=== PATIENT | female | born 1945 | race Caucasian/White ===

== ENCOUNTER 2017-09-13 05:21 | Inpatient (IN) | payer MEDICARE, OTHER ==
[~2017-09-13] VITALS: Ht 160 cm; Wt 57.0 kg
[2017-09-13] MEDS ORDERED: POVIDONE IODINE 5% (ANTISEPSIS KIT) 4 APPLICATIONS EACH NARE PRN (06:15)
[2017-09-13] MEDS ORDERED: CHLORHEXIDINE GLUCONATE 2 % 1 PACK (2 CLOTHS) TOPICAL PRN (06:15)
[2017-09-13] MEDS ORDERED: SODIUM CHLORID 0.9% 500 ML IV PRN (06:15)
[2017-09-13] MEDS ORDERED: LACTATED RINGER'S 1000 ML IV PRN (06:15)
[2017-09-13] MEDS ORDERED: METOPROLOL TARTRATE 25 MG TAB PO PRN (06:15)
[2017-09-13] MEDS ORDERED: ceFAZolin 2 GM PREMIX 50 ML IV SCH (06:15)
[2017-09-13 06:51] LABS: INTERNATIONAL NORMALIZED RATIO 1.1 RATIO; PROTHROMBIN TIME - PATIENT 10.7 SEC (9.8-11.6)
[2017-09-13] MEDS ORDERED: fentaNYL CITRATE 250 MCG/5 ML AMP ONE (07:07)
[2017-09-13] MEDS ORDERED: ceFAZolin INJ 1,000 MG VIAL ONE (07:41)
--- NOTE | 2017-09-13 10:59 | HHI.PR ---
Immediate Post Op Note Procedure Date: Sep 13, 2017 Pre Op Diagnosis: Right UPJ Obstruction Post Op Diagnosis: same Surgeon: Johnathan Son Special Education Educational Assistant(s): n/a Procedure: Right robotic dismembered pyeloplasty Complications: none Estimated blood loss: 30 ml. Anesthesia: General Drains: GREGORIA Fluids: 1600 ml IVF Patient to: PACU Patient Condition: Good Johnathan Son MD Sep 13, 2017 10:59
[2017-09-13] MEDS: SODIUM CHLOR 0.9% 1000 ML INJ 1,000 ML IV SCH ×2 (11:00→21:38)
[2017-09-13] MEDS ORDERED: DO NOT ADM ANY ANTICOAGULANT DRUGS PRN (11:22)
--- NOTE | 2017-09-13 11:39 | MP ---
cc: MANAS GARCIA M.D.,KAREN Licona MD DATE OF SURGERY 09/13/2017 PREOPERATIVE DIAGNOSIS Right congenital UPJ obstruction. POSTOPERATIVE DIAGNOSIS Right congenital UPJ obstruction. PROCEDURE PERFORMED 1. Cystourethroscopy 2. Right retrograde pyelogram 3. Insertion of right ureteral stent 4. Robotic-assisted laparoscopic right dismembered pyeloplasty. SURGEON Karen Son MD ANESTHESIA General COMPLICATIONS None PREOPERATIVE ANTIBIOTICS Ancef 1 gram IV DRAINS 1. A 6 x 24 double-J right ureteral stent 2. A 10-[place] Ryland drain 3. 16-[place] Nichols BLOOD LOSS 30 mL FLUIDS 1600 mL of crystalloid COMPLICATIONS None DISPOSITION Stable to recovery INDICATIONS The patient is a 71-year-old female who was found to have right-sided hydronephrosis initially thought related to a kidney stone. However, the patient on further workup was found to have a congenital right UPJ obstruction caused possibly by a high insertion of the ureter or appeared to be maybe a crossing vessel. The patient would have intermittent pain on the right side, but her renal function was normal. Treatment options were discussed and she elected to proceed with definitive therapy in the form of a dismembered pyeloplasty. Due to the presence of a possible crossing vessel, it was decided that endopyelotomy would not be the best course of action. After the risks, benefits and alternatives were explained to the patient including the risk of loss of the kidney, urine leak, recurrence of stricture among others, she elected to procedure and informed consent was obtained. DETAILS OF THE PROCEDURE The patient was properly identified, brought back to the operating room, and laid supine on the operating room table. A proper time-out was performed under the direction of anesthesiology. The patient and induced under general aesthetic. Preoperative antibiotics in form of Ancef one gram IV was given within a one hour start of the procedure. The patient was initially placed in the dorsolithotomy position and prepped and draped in the normal sterile surgical fashion. A rigid cystoscope was carefully passed to her bladder per urethra without any difficulty. Her bladder was carefully inspected and there was no evidence of any bladder tumor, stones, diverticula or trabeculations. Both ureteral orifices appeared to be in normal anatomic location. There was only one ureteral orifice on each side. At this time, I then passed a 5-[place]atorial [place] open-ended ureteral catheter just inside the right ureteral orifice. A right retrograde pyelogram was performed which showed a non-tortuous, nondilated ureter, however, there was significant hydronephrosis and what appeared to be a high insertion of the ureter at approximately the 2-3 o'clock position, but it was slightly difficult due to the large renal pelvis. I then passed a wire under fluoroscopy up into the right kidney through the indwelling ureteral catheter. The ureteral catheter was then removed and I back loaded a 6 x 24 double-J stent over the wire up into the right kidney. The wire was removed and the stent appeared to be in good position. A 20-[place] three-way Nichols catheter was then placed and clamped off. This concluded the first portion of the procedure. The patient was then repositioned into the left lateral decubitus position with right side up. All pressure points were padded. She was then prepped and draped in a normal sterile surgical fashion. A stab incision was made just superior and lateral to the umbilicus triangulated between the xiphoid process and the twelfth rib. The Veress needle was then used to gain access to the abdominal cavity. Pneumoperitoneum was then achieved. I then placed a 12-mm camera port under direct visualization. The intra-abdominal cavity was inspected. She had very minimal abdominal fat. A small part of the colon was adhesed to the anterior abdominal wall. Her liver itself did appear discolored and almost fatty in appearance. At this time, three other ports were then inserted, this included two 8 mm robotic ports triangulated off of the camera port one two fingerbreadths below the subcostal margin, the other one a handbreadth medial to the ASIS. A 12-mm school health assistant port was then triangulated between the camera port and the right lower quadrant port which ended up being in the midline inferior to the umbilicus. Again all ports were placed under direct visualization. The robot was then brought into position. I began by taking down the adhesions from the anterior abdominal wall to release the colon. I then reflected the colon medially by taking down the white line of Toldt. This easily exposed the dilated ureter due to the stent placement. I then follow the ureter all the up to its insertion at the UPJ. There was a large lower pole vessel that appeared to be a large vein likely was the cause of her UPJ as it did not really have a high insertion of her ureter. Therefore I then divided the ureter from the UPJ and brought the renal pelvis and ureter anterior to the vessel. A watertight anastomosis was performed with running 3-0 Vicryl sutures over the stent. There was no evidence of any urine leak at the end of the case. One gram of Sridhar was used for hemostatic purposes. At this time, the abdominal insufflation was brought down to 7 mmHg. Everything appeared to be dry and hemostatic. No evidence of bleeding. A 10-[place]atorial [place] GREGORIA drain was then placed in the right lower quadrant through the second robotic port. It was secured with a 3-0 nylon to the skin. All ports removed under direct visualization. The sponge, needle count was correct at the end of the case. This concluded procedure. The patient was extubated and sent to recovery in stable condition to be transferred to the floor for routine postoperative care. MD BRO Jamil/KAREL /11:05 AM /11:20 AM
--- NOTE | 2017-09-13 11:58 | EKG ---
Date Performed: 09/13/2017 Time Performed: 06:24:41 PTAGE: 71 years EKG: Sinus rhythm NORMAL ECG NO PREVIOUS TRACING DOCTOR: Crystal Summers Interpretating Date/Time 09/13/2017 11:57:57
[2017-09-13] MEDS ORDERED: ROCURONIUM INJ 50 MG/5 ML SYRINGE IV PUSH ONE (12:00)
[2017-09-13] MEDS ORDERED: GLYCOPYRROLATE 1 MG/5 ML SYRINGE IV PUSH ONE (12:00)
[2017-09-13] MEDS: ACETAMINOPHEN 1000 MG/100 ML 100 ML IV SCH ×3 (12:00→21:46)
[2017-09-13] MEDS ORDERED: PROPOFOL 200 MG/20 ML AMP IV ONE (12:00)
[2017-09-13] MEDS ORDERED: ONDANSETRON HCL 4 MG/2 ML VIAL IV ONE (12:00)
[2017-09-13] MEDS ORDERED: NEOSTIGMINE 5 MG/5 ML SYRINGE IV PUSH ONE (12:00)
[2017-09-13] MEDS ORDERED: MORPHINE SULFATE 4 MG/ML INJ IV PUSH PRN (12:00)
[2017-09-13] MEDS ORDERED: ePHEDrine/NS 25 MG/5 ML SYRINGE IV ONE (12:00)
[2017-09-13] MEDS ORDERED: LIDOCAINE HCL 1% PF 5 ML SYRINGE OTHER ONE (12:00)
[2017-09-13] MEDS ORDERED: DEXAMETHASONE SOD PHOS 4 MG/ML VIAL IV ONE (12:00)
[2017-09-13] MEDS ORDERED: PHENYLEPH/NS 1000 MCG/10 ML SYR IV ONE (12:00)
[2017-09-13] MEDS ORDERED: *morphine SULFATE 4 MG/ML PERIprocedure ONLY ONE (12:36)
[2017-09-13] MEDS: PANTOPRAZOLE SODIUM 40 MG VIAL IV PUSH SCH (13:00)
[2017-09-13] MEDS: CLINDAMYCIN 600 MG/NS PREMIX 50 ML IV SCH ×2 (13:00→21:35)
--- NOTE | 2017-09-13 13:14 | RADRPT ---
EXAM DATE/TIME: 09/13/2017 08:08 [facility] COMPARISON: No previous studies available for comparison. INDICATIONS : Right kidney retrograde pyleogram. .30 minutes 2 CONTRAST: Instilled by Ordering Physician MEDICAL HISTORY : None. SURGICAL HISTORY : None. ENCOUNTER: Initial ACUITY: 1 day PAIN SCORE: Non-responsive. LOCATION: Right kidney FINDINGS: Retrograde pyelogram demonstrates contrast within a dilated renal pelvis. Stent has been placed. CONCLUSION: Dilated right renal pelvis. Travon Dinh MD on September 13, 2017 at 13:11 Board Certified Radiologist. This report was verified electronically.
[2017-09-13] MEDS: ONDANSETRON HCL 4 MG/2 ML VIAL IV PUSH PRN ×2 (13:46→17:43)
[2017-09-13 14:55] LABS: AUTOMATED NEUTROPHIL # 8.9 TH/MM3 (1.8-7.7); BASOPHIL % 0.1 % (0.0-2.0); HEMOGLOBIN 12.3 GM/DL (11.6-15.3); LYMPH % 5.1 % (9.0-44.0); LYMPHOCYTE # 0.5 TH/MM3 (1.0-4.8); MEAN CELL VOLUME 92.2 FL (80.0-100.0); MEAN CORPUSCULAR HEMOGLOBIN 31.5 PG (27.0-34.0); MEAN CORPUSCULAR HGB CONC 34.2 % (32.0-36.0); MEAN PLATELET VOLUME 7.3 FL (7.0-11.0); MONO % 2.1 % (0.0-8.0); MONOCYTE # 0.2 TH/MM3 (0-0.9); NEUT % 92.7 % (16.0-70.0); PLATELET COUNT 152 TH/MM3 (150-450); RED BLOOD COUNT 3.91 MIL/MM3 (4.00-5.30); WHITE BLOOD COUNT 9.7 TH/MM3 (4.0-11.0)
[2017-09-13 15:59] LABS: CALCIUM 7.3 MG/DL (8.5-10.1); CREATININE 0.42 MG/DL (0.50-1.00)
[2017-09-13 16:00] VITALS: BP 98/55; PULSE 80; RESP 16; TEMP 95.8; O2SAT 100
[2017-09-13 16:24] LABS: CALCIUM-PROTEIN CORRECTED 8.5 MG/DL (8.5-10.1); TOTAL PROTEIN 4.9 GM/DL (6.4-8.2)
[2017-09-13] MEDS ORDERED: METOCLOPRAMIDE HCL 10 MG/2 ML VIAL IV STA (17:57)
[2017-09-13] MEDS ORDERED: METOCLOPRAMIDE HCL 10 MG/2 ML VIAL IV PRN (18:30)
[2017-09-13 20:00] VITALS: BP 93/50; PULSE 81; RESP 18; TEMP 96.2; O2SAT 97
[2017-09-13] MEDS: DOCUSATE SODIUM 100 MG CAP PO SCH (21:00)
[2017-09-14] VITALS: BP 93/52; PULSE 88; RESP 18; TEMP 97.2; O2SAT 95
[2017-09-14 04:00] VITALS: BP 89/53; PULSE 76; RESP 18; TEMP 98.1; O2SAT 94
[2017-09-14] MEDS: CLINDAMYCIN 600 MG/NS PREMIX 50 ML IV SCH (04:03)
[2017-09-14] MEDS: SODIUM CHLOR 0.9% 1000 ML INJ 1,000 ML IV SCH (04:03)
[2017-09-14] MEDS: ACETAMINOPHEN 1000 MG/100 ML 100 ML IV SCH ×3 (06:30→17:20)
[2017-09-14 07:25] LABS: HEMATOCRIT 34.9 % (35.0-46.0); MEAN CELL VOLUME 92.6 FL (80.0-100.0); MEAN CORPUSCULAR HEMOGLOBIN 31.9 PG (27.0-34.0); MEAN CORPUSCULAR HGB CONC 34.5 % (32.0-36.0); MEAN PLATELET VOLUME 8.2 FL (7.0-11.0); PLATELET COUNT 170 TH/MM3 (150-450); RED BLOOD COUNT 3.76 MIL/MM3 (4.00-5.30); RED CELL DISTRIBUTION WIDTH 12.3 % (11.6-17.2); WHITE BLOOD COUNT 8.2 TH/MM3 (4.0-11.0)
[2017-09-14 07:47] LABS: BICARBONATE 23.7 MEQ/L (21.0-32.0); CALCIUM 7.9 MG/DL (8.5-10.1); CREATININE 0.49 MG/DL (0.50-1.00)
[2017-09-14 08:00] VITALS: BP 98/51; PULSE 70; RESP 17; TEMP 97.6; O2SAT 97
[2017-09-14] MEDS: DOCUSATE SODIUM 100 MG CAP PO SCH ×2 (08:27→20:32)
[2017-09-14 12:00] VITALS: BP 98/53; PULSE 82; RESP 18; TEMP 98.3; O2SAT 95
[2017-09-14] MEDS: PANTOPRAZOLE SODIUM 40 MG VIAL IV PUSH SCH (12:25)
[2017-09-14] MEDS ORDERED: KETOROLAC TROMETHAMINE 30 MG/ML (IVP) VIAL IV PUSH PRN (13:30)
[2017-09-14] MEDS ORDERED: traMADol HCL 50 MG TAB PO PRN ×2 (13:30)
--- NOTE | 2017-09-14 13:35 | HHI.PR ---
Subjective Patient symptoms today had significant nausea yesterday but much improved after adding Reglan. Voiding on own. Holding liquids down. Has been OOB. Denies fevers, chills, CP, SOB. Has not passed flatus. Objective Vital Signs Vital Signs Date Time Temp Pulse Resp B/P (MAP) Pulse Ox O2 Delivery O2 Flow Rate FiO2 09/14/17 12:00 98.3 82 18 98/53 (68) 95 09/14/17 08:00 97.6 70 17 98/51 (67) 97 09/14/17 04:00 98.1 76 18 89/53 (65) 94 09/14/17 00:00 97.2 88 18 93/52 (66) 95 09/13/17 20:00 96.2 81 18 93/50 (64) 97 09/13/17 16:00 95.8 80 16 98/55 (69) 100 09/13/17 14:45 97.4 71 14 94/55 (68) 100 Nasal Cannula 2 09/13/17 14:30 77 14 95/55 (68) 100 Nasal Cannula 2 09/13/17 14:15 76 14 92/53 (66) 100 Nasal Cannula 2 09/13/17 14:00 74 14 90/50 (63) 100 Nasal Cannula 2 09/13/17 13:45 97.4 79 14 88/53 (65) 100 Nasal Cannula 2 Intake & Output 09/14/17 09/14/17 07:00 19:00 Intake Total 1769 ml Output Total 1405 ml Balance 364 ml Intake Oral 600 ml IV Total 1169 ml Output Urine Total 1350 ml Drainage Total 55 ml # Bowel Movements 0 Result Diagram: 09/14/17 0553 09/14/17 0553 Objective Remarks NAD. A/O x 3 non labored respirations RRR abd soft, minimal tenderness, ND. inc c/d/i. GREGORIA drain with serous fluid. Ext NT. no edema. Medications and IVs Current Medications Medications (Trade) Dose Ordered Sig/[place]ha Route Start Time Stop Time Status Last Admin Cefazolin Sodium/ Dextrose 50 ml @ 150 mls/hr CUT OUT PRESS OPERATOR IV 09/13/17 06:15 09/16/17 06:14 Lactated Ringer's 1,000 ml @ 30 mls/hr Q24H PRN IV 09/13/17 06:15 09/16/17 06:14 09/13/17 06:00 Sodium Chloride 500 ml @ 30 mls/hr [id number] PRN IV 09/13/17 06:15 09/16/17 06:14 (Lopressor) 25 mg CUT OUT PRESS OPERATOR PRN PO 09/13/17 06:15 09/16/17 06:14 (Betadine 5% Antisepsis Kit) 1 applic CUT OUT PRESS OPERATOR PRN EACH NARE 09/13/17 06:15 09/16/17 06:14 09/13/17 06:30 (Chlorhexidine 2% Cloth) 3 pack CUT OUT PRESS OPERATOR PRN TOPICAL 09/13/17 06:15 09/16/17 06:14 09/13/17 05:45 (Colace) 100 mg BID PO 09/13/17 21:00 Acetaminophen 100 ml @ 400 mls/hr Q6H IV 09/13/17 12:00 09/14/17 12:25 (Protonix Inj) 40 mg Q24H IV PUSH 09/13/17 13:00 09/14/17 12:25 (Zofran Inj) 4 mg Q6HR PRN IV PUSH 09/13/17 13:00 09/13/17 17:43 (Ultram) 50 mg Q4H PRN PO 09/14/17 13:30 UNV (Ultram) 100 mg Q4H PRN PO 09/14/17 13:30 UNV (Toradol Inj) 15 mg Q6H PRN IV PUSH 09/14/17 13:30 UNV Assessment and Plan Assessment and Plan s/p Right Robotic Pyeloplasty, POD #1 -Hep lock -Hgb stable -Initial GREGORIA Cr was serum. D/C nguyen. Repeat GREGORIA Cr. -Adjust pain meds -ambulate, IS. -possible d/c home tomorrow. Johnathan Son MD Sep 14, 2017 13:35
[2017-09-14 16:00] VITALS: BP 98/52; PULSE 77; RESP 17; TEMP 97.6; O2SAT 97
[2017-09-14] MEDS: ONDANSETRON HCL 4 MG/2 ML VIAL IV PUSH PRN ×2 (19:26→19:29)
[2017-09-14 20:00] VITALS: BP 110/57; PULSE 70; RESP 20; TEMP 97.3; O2SAT 95
[2017-09-15] VITALS: BP 112/59; PULSE 75; RESP 20; TEMP 98.2; O2SAT 95
[2017-09-15] MEDS: ACETAMINOPHEN 1000 MG/100 ML 100 ML IV SCH ×3 (01:22→11:32)
[2017-09-15] MEDS: DOCUSATE SODIUM 100 MG CAP PO SCH (07:56)
[2017-09-15 08:00] VITALS: BP 114/68; PULSE 73; RESP 16; TEMP 97.9; O2SAT 95
[2017-09-15] MEDS: PANTOPRAZOLE SODIUM 40 MG VIAL IV PUSH SCH (11:32)
[2017-09-15 12:00] VITALS: BP 119/63; PULSE 75; RESP 17; TEMP 98.2; O2SAT 97
[2017-09-15] MEDS ORDERED: TRAM50 PO (13:01)
[2017-09-15] MEDS ORDERED: DOCU1CAP39 PO (13:01)
[2017-09-15] MEDS ORDERED: PANT40TA3 PO (13:01)
== END 2017-09-15 14:51 | disposition home or self-care (01) | DRG 661 ==
LOC: HSDI 05:21 → N07A 14:58
PROVIDERS: ADMIT Urology; ATTEND Urology
PROC: BT1D1ZZ Fluoroscopy of Right Kidney, Ureter and Bladder using Low Osmolar Contrast (ICD-10-PCS; 2017-09-13)
PROC: 8E0W4CZ Robotic Assisted Procedure of Trunk Region, Percutaneous Endoscopic Approach (ICD-10-PCS; 2017-09-13)
PROC: 0TS64ZZ Reposition Right Ureter, Percutaneous Endoscopic Approach (ICD-10-PCS; principal; 2017-09-13 07:25)
PROC: 0T768DZ Dilation of Right Ureter with Intraluminal Device, Via Natural or Artificial Opening Endoscopic (ICD-10-PCS; 2017-09-13 07:25)
DX: Q62.39 Other obstructive defects of renal pelvis and ureter (principal); R11.0 Nausea; F17.210 Nicotine dependence, cigarettes, uncomplicated; Z88.1 Allergy status to other antibiotic agents; Z88.2 Allergy status to sulfonamides; Z88.8 Allergy status to other drugs, medicaments and biological substances
CPT/HCPCS: 74420; 76000; 80048; 82570; 84155; 85025; 85027; 85610; 93005; C1769; C2617; C9113; J0131; J0690; J1100; J2270; J2370; J2405; J2710; J2765; J3010; J7030; J7120